=== PATIENT | male | born 1965 | race Caucasian/White ===

== ENCOUNTER 2017-02-15 13:11 | Day surgery (SDC) | payer BC ==
[2017-02-07 11:56] VITALS: BMI 34.4
[2017-02-15] MEDS ORDERED: LIDOCAINE HCL 2% (20ML MULTI-DOSE VIAL) NR ONE (13:30)
[2017-02-15] MEDS ORDERED: MIDAZOLAM HCL 2 MG/2 ML SINGLE DOSE VIAL ONE (14:30)
[2017-02-15] MEDS ORDERED: ONDANSETRON 4 MG/2 ML VIAL IVPUSH PRN (14:43)
[2017-02-15] MEDS ORDERED: oxyCODONE HCL 5 MG TABLET PO PRN (14:43)
[2017-02-15] MEDS ORDERED: LIDOCAINE HCL 2% JELLY (5 ML/TUBE) ONE (14:57)
[2017-02-15] MEDS ORDERED: BUPIVACAINE HCL/PF 2.5 MG/ML - 30 ML VIAL IJ ONE (15:19)
[2017-02-15 16:54] VITALS: PULSE 65
[2017-02-15 17:10] VITALS: BP 122/64; TEMP 98.2
--- NOTE | 2017-02-16 10:37 | OP ---
DATE OF OPERATION: 02/15/2017 PREOPERATIVE DIAGNOSES: 1. Left carpal tunnel syndrome. 2. Left wrist mass. OPERATIVE PROCEDURES: 1. Left carpal tunnel release. 2. Left wrist mass excision. SURGEON: William Carrasco MD ANESTHESIA: General. COMPLICATIONS: None. ESTIMATED BLOOD LOSS: Minimal. INDICATIONS FOR PROCEDURE: The patient is a 51-year-old male with the above findings, indicated for operative treatment. The risks, benefits, and alternatives were discussed with the patient at length. Proper informed consent was obtained. PROCEDURE: After proper identification of the patient and the correct operative site, the patient was brought to the operating room and placed supine on the operating table with prominences well padded. General anesthesia was provided by the anesthesiologist adequate for procedure. Left upper extremity was prepped and draped in the usual sterile fashion. Well-padded tourniquet was placed with a sterile prep. Esmarch bandage used to exsanguinate the left upper extremity. Tourniquet inflated to 250 mmHg. A longitudinal incision was made in the proximal aspect of the palm. Incision was taken sharply through the skin with blunt and sharp dissection through subcutaneous tissues. Palmar fascia was divided longitudinally. The transverse carpal ligament was divided longitudinal along with the distal portion of antebrachial fascia under direct visualization with loupe magnification. This provided complete release of the median nerve at the wrist. Wound was irrigated with saline and repaired with 5-0 nylon suture. A second volar incision was made over the volar radial aspect of the wrist in a curvilinear fashion over the mass. Incision was taken sharply to the skin with blunt and sharp dissection through subcutaneous tissues. The mass was found to be a large cystic structure and was dissected free of the adjacent soft tissues. A branch of the radial artery was going through the cyst itself and was not able to be dissected free and therefore was tied off at this area, and the cyst was then traced down to the radiocarpal joint, where it was excised in whole. This was sent for pathological evaluation. The tourniquet was released, and there was no significant bleeding, and the hand was well perfused. The wound was repaired with a 5-0 nylon suture. Sterile dressings were applied. Patient was reversed from anesthesia and brought to the recovery room in stable condition. He tolerated the procedure well. WILLIAM CARRASCO M.D. [id number]
--- NOTE | 2017-02-17 15:42 | PATH ---
Surgical Pathology Report Patient Name: BISHOP LOUIS [facility]. Rec. #: [id number] /Age/Gender: 1965 (Age: 51) / M Account: [id number] Location: [facility] Taken: 02/15/2017 Received: 02/15/2017 Reported: 02/17/2017 Physicians: William Lloyd M.D. Specimen(s) Received LEFT WRIST MASS Clinical History Carpel tunnel and mass left wrist Final Diagnosis WRIST, LEFT, MASS, EXCISION: GANGLION CYST. Electronically Signed Leanne Flores M.D. Gross Description Received in formalin labelled "left wrist mass" is a 2 x 1.0 x 0.8 cm portion of carpenter tissue. Cut surface reveals a cystic interior. Sectioned and totally submitted one cassette. [facility]/02/16/2017 [facility]/02/16/2017
== END 2017-02-15 17:16 | disposition home or self-care (01) ==
LOC: FASU 13:11
PROVIDERS: ATTEND Orthopaedic Surgery Hand Surgery
PROC: 01N50ZZ Release Median Nerve, Open Approach (ICD-10-PCS; principal; 2017-02-15 10:10)
PROC: 0RBP0ZZ Excision of Left Wrist Joint, Open Approach (ICD-10-PCS; 2017-02-15 10:10)
DX: G56.02 Carpal tunnel syndrome, left upper limb (principal); M67.432 Ganglion, left wrist
CPT/HCPCS: 88305-TC; 94760